=== PATIENT | female | born 1950 | race Caucasian/White ===

== ENCOUNTER 2017-03-10 12:05 | Emergency (ER) | payer MEDICARE, MEDICAID ==
[2017-03-10 12:15] VITALS: BP 118/77
--- NOTE | 2017-03-10 13:10 | ER Document Report ---
ED Respiratory Problem - General Chief Complaint: Breathing Difficulty Stated Complaint: RESPIRATORY DISTRESS Mode of Arrival: Medic Information source: Patient - HPI Patient complains to provider of: Short of breath Onset: Just prior to arrival Duration: Better Initiating Event: Exposure to chemicals Quality of pain: No pain Severity: Severe Notes: 66-year-old female with history of tobacco abuse presents with shortness of breath starting just prior to coming to the emergency department by ambulance. She denies a prior history of lung disease. She was using bug bombs in the house and was exposed to them in the closed in the area. She became very short of breath and did have some cough but she has had no recent URI type illness. Denies chest pain. Currently she states she is feeling much better. EMS noted here to be tachycardic and hypertensive with a room air saturation of 92% - Related Data Allergies/Adverse Reactions: codeine Allergy (Severe, Verified 03/10/17 12:15) "Deathly Ill" Penicillins Allergy (Mild, Verified 03/10/17 12:15) Hives Fire Ants Allergy (Intermediate, Uncoded 03/10/17 12:15) Hives, Severe Itching Past Medical History - Social History Smoking Status: Current Every Day Smoker Family History: None - Past Medical History Cardiac Medical History: Reports: Hx Heart Attack, Hx Hypercholesterolemia, Hx Hypertension Pulmonary Medical History: Denies: Hx Tuberculosis Neurological Medical History: Reports: Hx Cerebrovascular Accident Musculoskeltal Medical History: Reports Hx Arthritis Psychiatric Medical History: Reports: Hx Depression Past Surgical History: Reports: Hx Cardiac Catheterization. Denies: Hx Pacemaker - Immunizations Hx Diphtheria, Pertussis, Tetanus Vaccination: No - unk Review of Systems - Review of Systems -: Yes All other systems reviewed and negative Physical Exam - Vital signs Vitals: Temp Pulse Resp BP Pulse Ox 97.8 F 91 18 118/77 94 03/10/17 12:11 03/10/17 12:11 03/10/17 12:11 03/10/17 12:11 03/10/17 12:11 - Notes Notes: Physical Exam: GENERAL: VS as per nursing doc. Well-appearing, well-nourished and in no acute distress. HEAD: Atraumatic, normocephalic. EYES: Pupils equal round and reactive to light, extraocular movements intact, sclera anicteric, no conjunctival injection or discharge. ENT: Nares patent, oropharynx clear without exudates. Moist mucous membranes. NECK: Normal range of motion, supple without lymphadenopathy. No JVD. No Carotid Bruits. LUNGS: Breath sounds clear to auscultation bilaterally and equal but are slightly coarse. No wheezes rales or rhonchi. HEART: Normal S1S2. Regular rate and rhythm without murmurs. Equal peripheral pulses. ABDOMEN: Soft, non-tender. EXTREMITIES: Normal range of motion. No calf tenderness. Negative Homans. No edema. NEUROLOGICAL: Cranial nerves grossly intact. Normal speech. Normal sensory and motor exams. No gross cerebellar abnormalities. Slight tremor noted PSYCH: Normal mood, normal affect. SKIN: Warm, dry, no cyanosis, no splinter hemorrhages. Cap refill < 2 sec. Course - Re-evaluation Re-evalutation: 03/10/17 14:15 Patient has been observed in the emergency department. On reexam her lungs are clear this point. EKG shows her heart rate is normalized as well. She is symptomatically back at her baseline. I did encourage her to quit smoking. I' ll prescribe her albuterol in case she has what sounds like more bronchospasm. - Vital Signs Vital signs: Temp Pulse Resp BP Pulse Ox 97.8 F 84 18 118/77 95 03/10/17 12:11 03/10/17 12:40 03/10/17 12:11 03/10/17 12:11 03/10/17 12:40 - Diagnostic Test Radiology reviewed: Image reviewed, Reports reviewed - Left lower linear atelectasis - EKG Interpretation by Me EKG shows normal: Sinus rhythm Rate: Normal Rhythm: NSR - Rate 71, no clear ischemia, consideration for incomplete right bundle branch block Discharge - Discharge Clinical Impression: Dyspnea, Bronchospasm Condition: Good Disposition: HOME, SELF-CARE Instructions: Dyspnea, Nonspecific ([facility]) Additional Instructions: Return for worsening or concern. Ensure you air out the house properly and avoid further exposure. Prescriptions: Albuterol Sulfate [Proair HFA Inhalation Aerosol 8.5 gm MDI] 2 puff IH Q4H PRN # 1 mdi PRN Reason: Forms: Smoking Cessation Education Referrals: LUIS FELIPE ARAMBULA PA [Primary Care Provider] - Follow up in 3-5 days
--- NOTE | 2017-03-10 20:36 | EKG REPORT ---
SEVERITY:- NORMAL ECG - SINUS RHYTHM : Confirmed by: Suzie Stokes 10-Mar-2017 20:35:56
== END 2017-03-10 14:29 | disposition home or self-care (01) ==
LOC: ER 12:05
DX: J98.01 Acute bronchospasm (principal); R06.00 Dyspnea, unspecified; F17.200 Nicotine dependence, unspecified, uncomplicated; I10 Essential (primary) hypertension; E78.00 Pure hypercholesterolemia, unspecified; I25.2 Old myocardial infarction; Z88.6 Allergy status to analgesic agent; Z88.0 Allergy status to penicillin; Z86.73 Personal history of transient ischemic attack (TIA), and cerebral infarction without residual deficits
CPT/HCPCS: 71010; 93005; 93010; 99285

== ENCOUNTER 2017-04-23 17:26 | Emergency (ER) | payer MEDICARE, OTHER ==
[2017-04-23] MEDS ORDERED: NORMAL SALINE 1000 ML 1,000 ML IV PRN (18:19)
--- NOTE | 2017-04-23 18:19 | ER Document Report ---
ED General - General Chief Complaint: Altered Mental Status Stated Complaint: UNRESPONSIVE Time Seen by Provider: 04/23/17 18:14 Mode of Arrival: Stretcher Information source: Patient TRAVEL OUTSIDE OF THE [place] IN LAST 30 DAYS: No - HPI Patient complains to provider of: Decreased responsiveness Onset: Just prior to arrival Quality of pain: No pain Associated symptoms: None Exacerbated by: Denies Relieved by: Denies Notes: Patient is a 66-year-old female who is brought to the emergency room by EMS for complaints of decreased responsiveness that was noted by her today, EMS notes she is responsive to painful stimuli, at time of my evaluation patient opens her eyes easily on verbal stimuli, she denies any complaints at present time, admits to drinking alcohol, and has her medication list at bedside which includes Klonopin and butalbital - Related Data Allergies/Adverse Reactions: codeine Allergy (Severe, Verified 04/23/17 17:41) "Deathly Ill" Penicillins Allergy (Mild, Verified 04/23/17 17:41) Hives acetaminophen [From Percocet] Allergy (Verified 04/23/17 17:42) oxycodone [From Percocet] Allergy (Verified 04/23/17 17:42) Fire Ants Allergy (Intermediate, Uncoded 03/10/17 12:15) Hives, Severe Itching Past Medical History - General Information source: Patient - Social History Smoking Status: Current Every Day Smoker Chew tobacco use (# tins/day): No Frequency of alcohol use: None Drug Abuse: None Family History: None Patient has suicidal ideation: No Patient has homicidal ideation: No - Past Medical History Cardiac Medical History: Reports: Hx Heart Attack, Hx Hypercholesterolemia, Hx Hypertension Pulmonary Medical History: Denies: Hx Tuberculosis Neurological Medical History: Reports: Hx Cerebrovascular Accident Renal/ Medical History: Denies: Hx Peritoneal Dialysis Musculoskeltal Medical History: Reports Hx Arthritis Psychiatric Medical History: Reports: Hx Depression Past Surgical History: Reports: Hx Cardiac Catheterization. Denies: Hx Pacemaker - Immunizations Hx Diphtheria, Pertussis, Tetanus Vaccination: No - unk Review of Systems - Review of Systems Constitutional: No symptoms reported EENT: No symptoms reported Cardiovascular: No symptoms reported Respiratory: No symptoms reported Gastrointestinal: No symptoms reported Genitourinary: No symptoms reported Female Genitourinary: No symptoms reported Musculoskeletal: No symptoms reported Skin: No symptoms reported Hematologic/Lymphatic: No symptoms reported Neurological/Psychological: No symptoms reported -: Yes All other systems reviewed and negative Physical Exam - Vital signs Vitals: Temp Pulse Resp BP Pulse Ox 98 F 58 L 20 99/53 L 88 L 04/23/17 17:42 04/23/17 17:42 04/23/17 17:42 04/23/17 17:42 04/23/17 17:42 Interpretation: Normal - General General appearance: Appears well, Alert In distress: None Notes: ETOH on breath - HEENT Head: Normocephalic, Atraumatic Eyes: Normal Pupils: PERRL - Respiratory Respiratory status: No respiratory distress Chest status: Nontender Breath sounds: Normal Chest palpation: Normal - Cardiovascular Rhythm: Regular Heart sounds: Normal auscultation Murmur: No - Abdominal Inspection: Normal Distension: No distension Bowel sounds: Normal Tenderness: Nontender Organomegaly: No organomegaly - Back Back: Normal, Nontender - Extremities General upper extremity: Normal inspection, Nontender, Normal color, Normal ROM , Normal temperature General lower extremity: Normal inspection, Nontender, Normal color, Normal ROM , Normal temperature, Normal weight bearing. No: Zander's sign - Neurological Neuro grossly intact: Yes Cognition: Normal Orientation: AAOx4 [place] Coma Scale Eye Opening: Spontaneous [place] Coma Scale Verbal: Oriented [place] Coma Scale Motor: Obeys Commands Franco Coma Scale Total: 15 Speech: Normal Motor strength normal: LUE, RUE, LLE, RLE Sensory: Normal - Psychological Associated symptoms: Normal affect, Normal mood - Skin Skin Temperature: Warm Skin Moisture: Dry Skin Color: Normal Course - Re-evaluation Re-evalutation: 04/23/17 21:18 More awake and alert, denies any complaints at present time, symptoms likely related to polypharmacy as well as EtOH consumption, she will be discharged with instructions for follow-up and advised to return if any additional concerns , patient acknowledges understanding and agreement with this plan 04/23/17 23:18 came to the emergency room and picked her up without difficulty, she was able to ambulate with a steady gait - Vital Signs Vital signs: Temp Pulse Resp BP Pulse Ox 98 F 79 20 154/82 H 97 04/23/17 17:42 04/23/17 21:52 04/23/17 21:52 04/23/17 21:52 04/23/17 21:52 - Laboratory Result Diagrams: 04/23/17 18:00 04/23/17 18:00 Laboratory results interpreted by me: 04/23/17 18:00 Potassium 3.5 L Chloride 110 H Glucose 72 L AST 41 H Total Protein 5.7 L Albumin 3.4 L Discharge - Discharge Clinical Impression: Acute alcohol intoxication Qualifiers: Complication of substance-induced condition: with unspecified complication Qualified Code(s): F10.929 - Alcohol use, unspecified with intoxication, unspecified Condition: Stable Disposition: HOME, SELF-CARE Instructions: Acute Alcohol Intoxication ([facility]) Additional Instructions: Follow up with your primary care provider in one to 2 days. Return to the emergency room immediately if symptoms worsen or any additional concerns.
[2017-04-23 18:31] LABS: ABSOLUTE BASOPHILS # (AUTO) 0.1 10^3/uL (0.0-0.2); ABSOLUTE EOSINOPHILS # (AUTO) 0.2 10^3/uL (0.0-0.6); ABSOLUTE LYMPHOCYTES (AUTO) 2.3 10^3/uL (0.5-4.7); ABSOLUTE MONOCYTES (AUTO) 0.4 10^3/uL (0.1-1.4); ABSOLUTE NEUT (AUTO) 3.4 10^3/uL (1.7-8.2); BASOPHILS % (AUTO) 1.3 % (0-2); EOSINOPHILS % (AUTO) 2.6 % (0-6); HEMOGLOBIN 13.3 g/dL (12.0-15.5); HGB HCT DIFFERENCE 0.9; LYMPHOCYTES % (AUTO) 36.8 % (13-45); MEAN CORPUSCULAR HEMOGLOBIN 31.6 pg (27.0-33.4); MEAN CORPUSCULAR HGB CONC 34.1 g/dL (32.0-36.0); MEAN CORPUSCULAR VOLUME 93 fl (80-97); MONOCYTES % (AUTO) 6.1 % (3-13); RED BLOOD COUNT 4.19 10^6/uL (3.72-5.28); RED CELL DISTRIBUTION WIDTH 13.2 % (11.5-14.0); SEGMENTED NEUTROPHILS % (AUTO) 53.2 % (42-78); WHITE BLOOD COUNT 6.4 10^3/uL (4.0-10.5)
[2017-04-23 18:36] LABS: ALANINE AMINOTRANSFERASE 33 U/L (9-52); ALBUMIN 3.4 g/dL (3.5-5.0); ALCOHOL 147 mg/dL (NONE DETECTED); ALKALINE PHOSPHATASE 84 U/L (38-126); ANION GAP 10 (5-19); ASPARTATE AMINO TRANSFERASE 41 U/L (14-36); BILIRUBIN,DIRECT 0.3 mg/dL (0.0-0.4); BILIRUBIN,TOTAL 0.4 mg/dL (0.2-1.3); BLOOD UREA NITROGEN 10 mg/dL (7-20); CALCIUM 8.4 mg/dL (8.4-10.2); CARBON DIOXIDE 24 mmol/L (22-30); CHLORIDE 110 mmol/L (98-107); CREATININE RESULT 0.81 mg/dL (0.52-1.25); GLUCOSE 72 mg/dL (75-110); POTASSIUM 3.5 mmol/L (3.6-5.0); SODIUM 144.1 mmol/L (137-145); TOTAL PROTEIN 5.7 g/dL (6.3-8.2)
[2017-04-23 18:53] LABS: APPEARANCE,URINE CLEAR; BILIRUBIN,URINE NEGATIVE (NEGATIVE); GLUCOSE, URINE NEGATIVE (NEGATIVE); KETONES,URINE NEGATIVE (NEGATIVE); LEUKOCYTE ESTERASE,URINE NEGATIVE (NEGATIVE); NITRITE,URINE NEGATIVE (NEGATIVE); PROTEIN,URINE NEGATIVE (NEGATIVE); URINE SPECIFIC GRAVITY 1.006; UROBILINOGEN,URINE NEGATIVE mg/dL (<2.0)
--- NOTE | 2017-04-23 19:06 | RADIOLOGY REPORT (SQ) ---
EXAM DESCRIPTION: CT HEAD WITHOUT COMPLETED DATE/TIME: 04/23/2017 6:54 pm REASON FOR STUDY: injury COMPARISON: None. 2013 TECHNIQUE: Axial images acquired through the brain without intravenous contrast. Images reviewed wi th bone, brain and subdural windows. Images stored on PACS. All CT scanners at this facility use dose modulation, iterative reconstruction, and/or weight based d osing when appropriate to reduce radiation dose to as low as reasonably achievable (ALARA). [facility]: Dose Right [facility]: CareDose [facility]: Dose Right [facility]: Teradose 4D [facility]: Smart [employer] RADIATION DOSE: Up-to-date CT equipment and radiation dose reduction techniques were employed. CTDIv ol: 64.6 mGy. DLP: 1163 mGy-cm.mGy. LIMITATIONS: None. FINDINGS: VENTRICLES: Prominent. CEREBRUM: No masses. No hemorrhage. No midline shift. Areas of low density in the white matter mos t likely due to chronic micro-vascular ischemic change. No evidence for acute infarction. 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 CEREBELLUM: No masses. No hemorrhage. No alteration of density. No evidence for acute infarction. EXTRAAXIAL SPACES: Age-related involutional change. No fluid collections. No masses. ORBITS AND GLOBE: No intra- or extraconal masses. Normal contour of globe without masses. CALVARIUM: No fracture. PARANASAL SINUSES: No fluid or mucosal thickening. SOFT TISSUES: No mass or hematoma. OTHER: No other significant finding. IMPRESSION: CHRONIC CHANGES OF ATROPHY AND MICROVASCULAR ISCHEMIA. Old infarcts. NO ACUTE PROCESS. TECHNICAL DOCUMENTATION: JOB ID: [id number] Quality ID # [id number]: Final reports with documentation of one or more dose reduction techniques (e.g., Au tomated exposure control, adjustment of the mA and/or kV according to patient size, use of iterative reconstruction technique) 2010 [employer]- All Rights Reserved
[2017-04-23 19:13] LABS: URINE BARBITURATES SCREEN UNCONFIRMED POSITIVE; URINE METHADONE SCREEN NEGATIVE; URINE OPIATES LOW NEGATIVE; URINE PHENCYCLIDINE SCREEN NEGATIVE
[2017-04-23] MEDS ORDERED: ONDANSETRON HCL INJ/PF 4 MG/2 ML SDV IV ONE (19:30)
[2017-04-23] MEDS ORDERED: FENTANYL CITRATE INJ/PF 100 MCG/2 ML AMPUL IV ONE (19:30)
--- NOTE | 2017-04-23 21:25 | EKG REPORT ---
SEVERITY:- NORMAL ECG - SINUS RHYTHM : Confirmed by: Suzie Stokes 23-Apr-2017 21:24:24
[2017-04-23 21:53] VITALS: BP 154/82
== END 2017-04-23 22:05 | disposition home or self-care (01) ==
LOC: ER 17:26
DX: F10.929 Alcohol use, unspecified with intoxication, unspecified (principal); F17.200 Nicotine dependence, unspecified, uncomplicated; R41.82 Altered mental status, unspecified; E78.00 Pure hypercholesterolemia, unspecified; I10 Essential (primary) hypertension; Z88.6 Allergy status to analgesic agent; Z88.0 Allergy status to penicillin; I25.2 Old myocardial infarction
CPT/HCPCS: 93005; 99285; 96360; 36415; 87040; 87086; 80307 ×2; 85025; 87077; 80053; 81001; 87186; 70450; 93010; J7030